=== PATIENT | male | born 1985 | race Caucasian/White ===

== ENCOUNTER 2020-11-14 11:21 | Emergency (ER) | payer BC ==
[2020-11-14] MEDS ORDERED: Lactated Ringers 1,000 ML ONE (11:29)
[2020-11-14] MEDS ORDERED: Lactated Ringers 1,000 ML IV ONE ×2 (11:32→12:49)
[2020-11-14] MEDS: Ondansetron 4 MG/2 ML SDV ONE ×2 (11:34→11:35)
[2020-11-14] MEDS ORDERED: Ondansetron 4 MG/2 ML SDV IVPUSH ONE (11:35)
--- NOTE | 2020-11-14 14:23 | EDM.PDOC ---
ED HPI GENERAL MEDICAL PROBLEM - General Chief Complaint: Neurological Problem Stated Complaint: UNRESPONSIVE/MED ALERT Time Seen by Provider: 11/14/20 11:21 - History of Present Illness INITIAL COMMENTS - FREE TEXT/NARRATIVE: 35-year-old male brought in by EMS with altered levels of consciousness. According to the patient has been drinking this morning he cannot tell how much. He left work early because he was having some chest discomfort. Patient developed some chest pain at home. He was also a little sleepier than normal. EMS was called. They report a man that smells of alcohol and cigarette smoke. Vital signs are stable. Patient denies chest pain at this moment but did have some at home. Patient has a history of alcoholism he denies wanting help for it at this time he says he will figured out. Apparently he has been through rehab for this in the past. The patient has no recent history of trauma or hitting his head. Upon arrival to the emergency room he denies pain anywhere. He does seem slightly sedated. - Related Data Allergies Allergy/AdvReac Type Severity Reaction Status Date / Time No Known Allergies Allergy Verified 11/14/20 11:29 Home Meds: Home Meds . [No Known Home Meds] 11/14/20 [History] Past Medical History - Past Health History Medical/Surgical History: Denies Medical/Surgical History Social & Family History - Tobacco Use Tobacco Use Status *Q: Current Every Day Tobacco User Years of Tobacco use: 15 Packs/Tins Daily: 1 - Recreational Drug Use Recreational Drug Use: No ED ROS GENERAL - Review of Systems Review Of Systems: See Below Constitutional: Reports: No Symptoms HEENT: Reports: No Symptoms Respiratory: Reports: No Symptoms Cardiovascular: Reports: No Symptoms GI/Abdominal: Reports: No Symptoms : Reports: No Symptoms Musculoskeletal: Reports: No Symptoms Skin: Reports: No Symptoms Neurological: Denies: Dizziness, Headache, Numbness Psychiatric: Reports: No Symptoms Hematologic/Lymphatic: Reports: No Symptoms Immunologic: Reports: No Symptoms ED EXAM, GENERAL - Physical Exam Exam: See Below Exam Limited By: Other (Patient is sleepier than normal would expect however he wakens without difficulty and answers questions appropriately) General Appearance: No Apparent Distress, Lethargic, Other (Smells miles of alcohol) Eye Exam: Bilateral Eye: Normal Inspection, PERRL Ears: Normal External Exam, Normal Canal, Hearing Grossly Normal, Normal TMs Nose: Normal Inspection, Normal Mucosa, No Blood Throat/Mouth: Normal Inspection, Normal Lips, Normal Teeth, Normal Gums, Normal Oropharynx, Normal Voice, No Airway Compromise Head: Atraumatic, Normocephalic Neck: Normal Inspection, Supple, Non-Tender, Full Range of Motion. No: L ymphadenopathy (L), Lymphadenopathy (R) Respiratory/Chest: No Respiratory Distress, Lungs Clear, Normal Breath Sounds Cardiovascular: Regular Rate, Rhythm, No Edema, No Murmur GI/Abdominal: Normal Bowel Sounds, Soft, Non-Tender Rectal (Males) Exam: No: Tenderness Back Exam: Normal Inspection, Full Range of Motion. No: CVA Tenderness (R), Vertebral Tenderness Extremities: Normal Inspection, No Pedal Edema Neurological: Alert, CN II-XII Intact, Normal Cognition, No Motor/Sensory Deficits, Slow to Respond, Other (He acts very much intoxicated). No: Disoriented, Unresponsive Psychiatric: No: Anxious Skin Exam: Warm, Dry, Intact #1 Interpretation EKG Date: 11/14/20 Rhythm: NSR Rate (Beats/Min): 97 [place]: Normal P-Wave: Present QRS: Normal ST-T: Normal QT: Normal Comparison: NA - No Prior EKG EKG Interpretation Comments: Normal EKG Course - Vital Signs Last Recorded V/S: Last Vital Signs Temp 36.6 C 11/14/20 11:26 Pulse 118 H 11/14/20 11:26 Resp 17 11/14/20 11:26 BP 137/98 H 11/14/20 11:26 Pulse Ox 100 11/14/20 11:26 - Orders/Labs/Meds Orders: Active Orders 24 hr Category Date Time Status EKG Documentation Completion [RC] STAT Care 11/14/20 11:39 Active Labs: Laboratory Tests 11/14/20 11/14/20 11/14/20 Range/Units 11:25 11:25 12:19 WBC 8.87 (4.23-9.07) K/mm3 RBC 5.15 (4.63-6.08) M/mm3 Hgb 17.4 (13.7-17.5) gm/dl Hct 51.1 H (40.1-51.0) % MCV 99.2 H (79.0-92.2) fl MCH 33.8 H (25.7-32.2) pg MCHC 34.1 (32.2-35.5) g/dl RDW Std Deviation 50.4 H (35.1-43.9) fL Plt Count 237 (163-337) K/mm3 MPV 9.6 (9.4-12.3) fl Neut % (Auto) 48.7 (34.0-67.9) % Lymph % (Auto) 39.0 (21.8-53.1) % [place] % (Auto) 10.5 (5.3-12.2) % Eos % (Auto) 1.0 (0.8-7.0) Baso % (Auto) 0.5 (0.1-1.2) % Neut # (Auto) 4.32 (1.78-5.38) K/mm3 Lymph # (Auto) 3.46 (1.32-3.57) K/mm3 [place] # (Auto) 0.93 H (0.30-0.82) K/mm3 Eos # (Auto) 0.09 (0.04-0.54) K/mm3 Baso # (Auto) 0.04 (0.01-0.08) K/mm3 Sodium 145 (136-145) mEq/L Potassium 3.6 (3.5-5.1) mEq/L Chloride 106 (98-107) mEq/L Carbon Dioxide 27 (21-32) mEq/L Anion Gap 15.6 H (5-15) BUN 12 (7-18) mg/dL Creatinine 0.8 (0.7-1.3) mg/dL Est Cr Clr Drug Dosing TNP Estimated GFR (MDRD) > 60 (>60) mL/min BUN/Creatinine Ratio 15.0 (14-18) Glucose 108 H (74-106) mg/dL Calcium 8.7 (8.5-10.1) mg/dL Total Bilirubin 0.4 (0.2-1.0) mg/dL AST 161 H (15-37) U/L ALT 215 H (16-63) U/L Alkaline Phosphatase 92 (46-116) U/L Troponin I < 0.017 (0.00-0.056) ng/mL Total Protein 7.5 (6.4-8.2) g/dl Albumin 4.3 (3.4-5.0) g/dl Globulin 3.2 gm/dL Albumin/Globulin Ratio 1.3 (1-2) Urine Color Yellow (Yellow) Urine Appearance Clear (Clear) Urine pH 6.5 (5.0-8.0) Ur Specific [place] 1.015 (1.005-1.030) Urine Protein Negative (Negative) Urine Glucose (UA) Negative (Negative) Urine Ketones Negative (Negative) Urine Occult Blood Negative (Negative) Urine Nitrite Negative (Negative) Urine Bilirubin Negative (Negative) Urine Urobilinogen 0.2 (0.2-1.0) Ur Leukocyte Esterase Negative (Negative) Urine Opiates Screen (WHHOGM=457) Ur Buprenorphine Scrn (CUTOFF=10) Ur Oxycodone Screen (FBT2LC=905) Urine Methadone Screen (QBK1LR=574) Ur Propoxyphene Screen (TKIRXS=486) Ur Barbiturates Screen (SLFNNS=030) Ur Tricyclics Screen (TUMQTT=346) Ur Phencyclidine Scrn (CUTOFF=25) Ur Amphetamine Screen (CFSJPB=932) U Methamphetamines Scrn (EOUEKH=124) U Benzodiazepines Scrn (AUIQJD=483) U Cocaine Metab Screen (TCDRJN=358) U Marijuana (THC) Screen (CUTOFF=50) Ethyl Alcohol 0.32 (0.00) gm% 11/14/20 Range/Units 12:19 WBC (4.23-9.07) K/mm3 RBC (4.63-6.08) M/mm3 Hgb (13.7-17.5) gm/dl Hct (40.1-51.0) % MCV (79.0-92.2) fl MCH (25.7-32.2) pg MCHC (32.2-35.5) g/dl RDW Std Deviation (35.1-43.9) fL Plt Count (163-337) K/mm3 MPV (9.4-12.3) fl Neut % (Auto) (34.0-67.9) % Lymph % (Auto) (21.8-53.1) % [place] % (Auto) (5.3-12.2) % Eos % (Auto) (0.8-7.0) Baso % (Auto) (0.1-1.2) % Neut # (Auto) (1.78-5.38) K/mm3 Lymph # (Auto) (1.32-3.57) K/mm3 [place] # (Auto) (0.30-0.82) K/mm3 Eos # (Auto) (0.04-0.54) K/mm3 Baso # (Auto) (0.01-0.08) K/mm3 Sodium (136-145) mEq/L Potassium (3.5-5.1) mEq/L Chloride (98-107) mEq/L Carbon Dioxide (21-32) mEq/L Anion Gap (5-15) BUN (7-18) mg/dL Creatinine (0.7-1.3) mg/dL Est Cr Clr Drug Dosing Estimated GFR (MDRD) (>60) mL/min BUN/Creatinine Ratio (14-18) Glucose (74-106) mg/dL Calcium (8.5-10.1) mg/dL Total Bilirubin (0.2-1.0) mg/dL AST (15-37) U/L ALT (16-63) U/L Alkaline Phosphatase (46-116) U/L Troponin I (0.00-0.056) ng/mL Total Protein (6.4-8.2) g/dl Albumin (3.4-5.0) g/dl Globulin gm/dL Albumin/Globulin Ratio (1-2) Urine Color (Yellow) Urine Appearance (Clear) Urine pH (5.0-8.0) Ur Specific [place] (1.005-1.030) Urine Protein (Negative) Urine Glucose (UA) (Negative) Urine Ketones (Negative) Urine Occult Blood (Negative) Urine Nitrite (Negative) Urine Bilirubin (Negative) Urine Urobilinogen (0.2-1.0) Ur Leukocyte Esterase (Negative) Urine Opiates Screen Negative (AKEFON=804) Ur Buprenorphine Scrn Negative (CUTOFF=10) Ur Oxycodone Screen Negative (KER3IW=566) Urine Methadone Screen Negative (CHW7JQ=090) Ur Propoxyphene Screen Negative (FGCUUW=672) Ur Barbiturates Screen Negative (QLOYEW=956) Ur Tricyclics Screen Negative (BJANDM=308) Ur Phencyclidine Scrn Negative (CUTOFF=25) Ur Amphetamine Screen Negative (DYIIAQ=210) U Methamphetamines Scrn Negative (RLUUXN=045) U Benzodiazepines Scrn Negative (YOVEEH=565) U Cocaine Metab Screen Negative (WATRTQ=049) U Marijuana (THC) Screen Negative (CUTOFF=50) Ethyl Alcohol (0.00) gm% - Re-Assessments/Exams Free Text/Narrative Re-Assessment/Exam: 11/14/20 14:27 Labs checked troponin negative his labs overall are consistent with a gentleman that is chronic alcoholism. The patient is insistent on going home at this time he has sober adults with him I discussed his drinking with the patient he denies really want help for this. I strongly urged him to follow-up with and/or [facility]. Departure - Departure Time of Disposition: 14:28 Disposition: Home, Self-Care 01 Clinical Impression: Alcoholic intoxication - Discharge Information Referrals: PCP,None [Primary Care Provider] - Additional Instructions: Return to the emergency room with any questions problems or worsening symptoms. It is essential you quit drinking. Start going to again and follow-up at [facility]. This with a local healthcare provider. Sepsis Event Note (ED) - Evaluation Sepsis Screening Result: No Definite Risk - Focused Exam Vital Signs: Vital Signs Temp Pulse Resp BP Pulse Ox 11/14/20 11:26 36.6 C 118 H 17 137/98 H 100 - My Orders Last 24 Hours: My Active Orders 11/14/20 11:39 EKG Documentation Completion [RC] STAT - Assessment/Plan Last 24 Hours: My Active Orders 11/14/20 11:39 EKG Documentation Completion [RC] STAT
== END 2020-11-14 14:43 | disposition home or self-care (01) ==
LOC: JD.ED 11:21
DX: F10.129 Alcohol abuse with intoxication, unspecified (principal); Z72.0 Tobacco use; Y90.8 Blood alcohol level of 240 mg/100 ml or more
CPT/HCPCS: 36415; 80053; 80306; 80307; 81003; 84484; 85025; 93005; 96374; 99285; J2405; J7120; 93010; 99284

== ENCOUNTER 2021-08-15 22:09 | Emergency (ER) | payer SELFPAY ==
[2021-08-15] MEDS ORDERED: Sodium Chloride 0.9% 1,000 ML IV ONE (22:46)
--- NOTE | 2021-08-15 23:44 | EDM.PDOCBH ---
ED HPI GENERAL MEDICAL PROBLEM - General Chief Complaint: Drug or Alcohol Abuse Stated Complaint: [facility] [place] AMB Time Seen by Provider: 08/15/21 23:00 Source of Information: Reports: Patient, EMS, RN Notes Reviewed - History of Present Illness INITIAL COMMENTS - FREE TEXT/NARRATIVE: Pt brought in by EMS intoxicated. Apparently called to EMS by family due to being very intoxicated. Pt has no complaints on arrival to ED. Does not want to be here. Admits he has fallen. Mild [place]. No chest pain or difficulty breathing. No abd pain or active vomiting. Treatments HEEL FINISHER: Reports: Other (see below) Other Treatments HEEL FINISHER: none - Related Data Allergies Allergy/AdvReac Type Severity Reaction Status Date / Time No Known Allergies Allergy Verified 11/14/20 11:29 Home Meds: Home Meds . [No Known Home Meds] 11/14/20 [History] Past Medical History - Past Health History Medical/Surgical History: Denies Medical/Surgical History Psychiatric History: Reports: Addiction, Dementia - Infectious Disease History Infectious Disease History: Reports: None Social & Family History - Tobacco Use Tobacco Use Status *Q: Current Every Day Tobacco User Years of Tobacco use: 29 Packs/Tins Daily: 1 - Caffeine Use Caffeine Use: Reports: Coffee, Energy Drinks, Soda - Recreational Drug Use Recreational Drug Use: No ED ROS GENERAL - Review of Systems Review Of Systems: See Below HEENT: Reports: No Symptoms Respiratory: Denies: Shortness of Breath Cardiovascular: Denies: Chest Pain GI/Abdominal: Denies: Abdominal Pain, Vomiting Musculoskeletal: Reports: No Symptoms Skin: Reports: No Symptoms Neurological: Reports: Dizziness, Headache (mild) ED EXAM, BEHAVIORAL HEALTH - Physical Exam Exam: See Below General Appearance: No Apparent Distress, Other (moderately intoxicated) Eye Exam: Bilateral Eye: PERRL Head: Atraumatic Neck: Supple Respiratory/Chest: No Respiratory Distress, Lungs Clear, Normal Breath Sounds Cardiovascular: Tachycardia GI/Abdominal: Soft, Non-Tender Extremities: Normal Inspection, Normal Range of Motion Neurological: Alert, No Motor/Sensory Deficits, Other (answering simple questions appropriately) Skin Exam: Warm, Dry, Normal color COURSE, BEHAVIORAL HEALTH COMP - Course Vital Signs: Last Vital Signs Temp 96.5 F L 08/15/21 22:44 Pulse 101 H 08/15/21 22:44 Resp 14 08/15/21 22:44 BP 133/93 H 08/15/21 22:44 Pulse Ox 89 L 08/15/21 22:44 Orders, Labs, Meds: Active Orders 24 hr Category Date Time Status Sodium Chloride 0.9% [Normal Saline] 1,000 ml Med 08/15/21 22:46 Active IV ONETIME Medication Orders Sodium Chloride (Normal Saline) 1,000 mls @ 999 mls/hr IV ONETIME ONE Stop: 08/15/21 23:46 Laboratory Tests 08/15/21 Range/Units 22:26 Sodium 145 (136-145) mEq/L Potassium 4.0 (3.5-5.1) mEq/L Chloride 106 (98-107) mEq/L Carbon Dioxide 29 (21-32) mEq/L Anion Gap 14.0 (5-15) BUN 10 (7-18) mg/dL Creatinine 0.9 (0.7-1.3) mg/dL Est Cr Clr Drug Dosing 117.16 mL/min Estimated GFR (MDRD) > 60 (>60) mL/min BUN/Creatinine Ratio 11.1 L (14-18) Glucose 109 H (70-99) mg/dL Calcium 8.0 L (8.5-10.1) mg/dL Total Bilirubin 0.3 (0.2-1.0) mg/dL AST 158 H (15-37) U/L ALT 181 H (16-63) U/L Alkaline Phosphatase 102 (46-116) U/L Total Protein 6.8 (6.4-8.2) g/dl Albumin 3.7 (3.4-5.0) g/dl Globulin 3.1 gm/dL Albumin/Globulin Ratio 1.2 (1-2) Ethyl Alcohol 0.33 (0.00) gm% Medications Generic Name Dose Route Start Last Admin Trade Name Freq PRN Reason Stop Dose Admin Sodium Chloride 1,000 mls @ 999 mls/hr 08/15/21 22:46 Normal Saline IV 08/15/21 23:46 ONETIME ONE Re-Assessment/Re-Exam: Informed a few minutes ago that pt left ED AMA. Departure - Departure Time of Disposition: 23:43 Disposition: Home, Self-Care 01 Condition: Fair Clinical Impression: Alcoholic intoxication Qualifiers: Complication of substance-induced condition: uncomplicated Qualified Code(s): F10.920 - Alcohol use, unspecified with intoxication, uncomplicated - Discharge Information Referrals: PCP,None [Primary Care Provider] - Sepsis Event Note (ED) - Focused Exam Vital Signs: Vital Signs Temp Pulse Resp BP Pulse Ox 08/15/21 22:44 96.5 F L 101 H 14 133/93 H 89 L - My Orders Last 24 Hours: My Active Orders 08/15/21 22:46 Sodium Chloride 0.9% [Normal Saline] 1,000 ml IV ONETIME - Assessment/Plan Last 24 Hours: My Active Orders 08/15/21 22:46 Sodium Chloride 0.9% [Normal Saline] 1,000 ml IV ONETIME
== END 2021-08-16 00:40 | disposition left against medical advice (07) ==
LOC: JD.ED 22:09
DX: F10.129 Alcohol abuse with intoxication, unspecified (principal); Z72.0 Tobacco use; Y90.5 Blood alcohol level of 100-119 mg/100 ml
CPT/HCPCS: 36415; 80053; 80307; 99284

== ENCOUNTER 2021-10-23 16:53 | Emergency (ER) | payer SELFPAY ==
[2021-10-23] MEDS ORDERED: Sodium Chloride 0.9% 10 ML Syringe FLUSH PRN (17:07)
[2021-10-23] MEDS ORDERED: Sodium Chloride 0.9% 1,000 ML IV ONE (17:18)
[2021-10-23] MEDS ORDERED: LORazepam 2 MG/ML SDV IVPUSH ONE (18:21)
[2021-10-23 18:36] LABS: CORONAVIRUS COVID-19 NAA NEGATIVE (NEGATIVE)
[2021-10-23] MEDS ORDERED: Nicotine 21 MG/24 Hr Patch TRDERM ONE (18:49)
== END 2021-10-23 20:52 | disposition home or self-care (01) ==
LOC: JD.ED 16:53
DX: F10.129 Alcohol abuse with intoxication, unspecified (principal); Z72.0 Tobacco use; Z86.16 Personal history of COVID-19; Y90.5 Blood alcohol level of 100-119 mg/100 ml; Z20.822 Contact with and (suspected) exposure to COVID-19
CPT/HCPCS: 0240U; 36415; 80053; 80306; 80307; 83735; 85025; 96374; 99284; A9270; J2060; J7030